=== PATIENT | female | born 2000 | race Caucasian/White ===

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

== ENCOUNTER → 2022-04-11 | Outpatient (CLI) | payer MEDICAID, SELFPAY ==
[2022-04-14 07:07] LABS: Chlamydia By Nucleic Acid AMP Negative (Negative)
[2022-04-14 07:23] LABS: Gonococcus By Nucleic Acid AMP Negative (Negative)
[2022-04-21 15:35] LABS: HPV Reflexed? NOT INDICATED
== END | disposition home or self-care (01) ==
PROVIDERS: Visit Provider Obstetrics & Gynecology
DX: Z11.3 Encounter for screening for infections with a predominantly sexual mode of transmission (principal); Z12.4 Encounter for screening for malignant neoplasm of cervix
CPT/HCPCS: 87491; 87591; 88175; G0145